=== PATIENT | male | born 1965 | race African-American/Black ===

== ENCOUNTER 2020-08-14 12:30 | Inpatient (IN) | payer MEDICAID, OTHER ==
[2020-08-14] VITALS (8 sets, daily range): BP systolic 98–126; BP diastolic 57–87
[~2020-08-14] VITALS: Ht 172.7 cm; Wt 76.7 kg
[2020-08-14] MEDS ORDERED: ALBU18HF2 IH (12:32)
[2020-08-14] MEDS ORDERED: SODIUM CHLORIDE 0.9% 1,000 ML IV ONE (13:00)
[2020-08-14 13:32] LABS: HEMATOCRIT. 23.8 % (42.0-52.0); HEMOGLOBIN. 7.9 g/dL (14.0-18.0); LYMPHOCYTES % 16.3 % (20.0-50.0); MEAN CORPUSCULAR HEMOGLOBIN 35.5 pg (28.0-32.0); MEAN CORPUSCULAR VOLUME 106.9 fL (80.0-94.0); MEAN PLATELET VOLUME 9.3 fl (7.4-10.4); MONOCYTES % 4.7 % (2.0-8.0); PLATELET 151 x1000/uL (130-400); RED BLOOD CELL COUNT 2.23 mill/uL (4.7-6.1); RED CELL DISTRIBUTION WIDTH 13.3 % (11.6-14.6)
[2020-08-14 13:38] LABS: CHLORIDE 107 mEq/L (98-107)
[2020-08-14 13:41] LABS: INR 1.1; PROTHROMBIN TIME 11.4 sec (9.6-11.0)
[2020-08-14 13:42] LABS: ETHANOL BLOOD < 10 mg/dL
[2020-08-14 13:50] LABS: CLARITY URINE CLEAR (CLEAR); COLOR URINE YELLOW (YELLOW); KETONES URINE NEGATIVE (NEGATIVE); LEUKOCYTE ESTERASE URINE NEGATIVE (NEGATIVE); NITRITE URINE NEGATIVE (NEGATIVE); OCCULT BLOOD URINE NEGATIVE (NEGATIVE); PH URINE 5.5 (4.5-8.0); PROTEIN URINE NEGATIVE (NEGATIVE); SPECIFIC GRAVITY URINE 1.019 (1.005-1.030); UROBILINOGEN URINE 0.2 E.U./dL (0.2-1.0)
[2020-08-14] MEDS ORDERED: PANTOPRAZOLE SODIUM 40 MG/VIAL IV ONE (14:15)
[2020-08-14] MEDS ORDERED: CLONIDINE 0.1MG TABLET PO PRN (16:30)
[2020-08-14] MEDS ORDERED: DIPHENHYDRAMINE 50MG/ML VIAL IV PRN (16:30)
[2020-08-14] MEDS ORDERED: ACETAMINOPHEN 325MG TABLET PO PRN (16:30)
[2020-08-14] MEDS ORDERED: ONDANSETRON HCL 4MG/2ML INJ IV PRN (16:30)
[2020-08-14] MEDS ORDERED: ATOR20TA PO (16:44)
[2020-08-14] MEDS ORDERED: LORAZEPAM 2MG/ML CPJ IV PRN (16:45)
[2020-08-14] MEDS ORDERED: *PATIENT'S OWN MEDICATION STORAGE XX SCH (17:15)
[2020-08-14] MEDS: SODIUM CHLORIDE 0.9% 1,000 ML IV SCH (18:11)
[2020-08-14 19:03] LABS: OPIATES URINE SCREEN NEGATIVE (NEGATIVE)
[2020-08-14 19:04] LABS: *AMPHETAMINES SCREEN URINE NEGATIVE (NEGATIVE); *BARBITURATES SCREEN URINE NEGATIVE (NEGATIVE); *BENZODIAZEPINES SCREEN URINE NEGATIVE (NEGATIVE); *COCAINE SCREEN URINE NEGATIVE (NEGATIVE); CANNABINOID URINE SCREEN NEGATIVE (NEGATIVE); METHADONE URINE SCREEN NEGATIVE (NEGATIVE); PHENCYCLIDINE URINE SCREEN PRESUMTIVE POSITIVE (NEGATIVE)
[2020-08-14 21:29] LABS: HEMOGLOBIN 5.9 g/dL (14.0-18.0)
[2020-08-14 21:30] LABS: HEMATOCRIT 17.6 % (42.0-52.0)
[2020-08-14] MEDS: CHLORDIAZEPOXIDE 25MG CAPSULE PO SCH (22:03)
[2020-08-14] MEDS: IPRATROPIUM BROMIDE (0.02%) 0.5MG/2.5ML NEB HHN SCH (22:54)
[2020-08-15] VITALS (22 sets, daily range): BP systolic 95–116; BP diastolic 54–86
[2020-08-15] MEDS: IPRATROPIUM BROMIDE (0.02%) 0.5MG/2.5ML NEB HHN SCH ×4 (02:51→20:29)
[2020-08-15] MEDS: SODIUM CHLORIDE 0.9% 1,000 ML IV SCH ×2 (05:50→19:53)
[2020-08-15 06:12] LABS: BASOPHILS % 0.8 % (0.0-2.0); EOSINOPHILS % 1.4 % (0.0-5.0); LYMPHOCYTES % 27.6 % (20.0-50.0); MEAN CORPUSCULAR HEMOGLOBIN 33.6 pg (28.0-32.0); MEAN CORPUSCULAR VOLUME 100.1 fL (80.0-94.0); MEAN PLATELET VOLUME 8.5 fl (7.4-10.4); MONOCYTES % 8.4 % (2.0-8.0); NEUTROPHILS % 61.8 % (40.0-76.0); PLATELET 108 x1000/uL (130-400); RED CELL DISTRIBUTION WIDTH 15.5 % (11.6-14.6)
[2020-08-15 06:22] LABS: HEMOGLOBIN. 6.7 g/dL (14.0-18.0)
[2020-08-15] MEDS: CHLORDIAZEPOXIDE 25MG CAPSULE PO SCH ×3 (06:29→21:33)
[2020-08-15 06:35] LABS: CHLORIDE 113 mEq/L (98-107)
[2020-08-15 06:43] LABS: LDL CHOLESTEROL 155 mg/dL (5-100)
[2020-08-15 06:45] LABS: HDL CHOLESTEROL 19 mg/dL (40-59)
[2020-08-15] MEDS ORDERED: PANTOPRAZOLE SODIUM 40 MG/VIAL IV SCH (09:00)
[2020-08-15] MEDS ORDERED: POTASSIUM CHLORIDE INJ 40 MEQ in DEXT 5% WATER 250 ML IV ONE (10:15)
[2020-08-15 13:33] LABS: HEMATOCRIT 23.5 % (42.0-52.0); HEMOGLOBIN 8.1 g/dL (14.0-18.0)
[2020-08-15] MEDS ORDERED: OCTREOTIDE ACETATE 50 MCG/ML 1ML IV NR (15:00)
[2020-08-15] MEDS: OCTREOTIDE 1,000 MCG in SODIUM CHLORIDE 0.9% 98 ML IV SCH (16:27)
[2020-08-15] MEDS: PANTOPRAZOLE SODIUM 40 MG/VIAL IV SCH (21:33)
[2020-08-16] VITALS (13 sets, daily range): BP systolic 82–118; BP diastolic 50–72
[2020-08-16] MEDS: IPRATROPIUM BROMIDE (0.02%) 0.5MG/2.5ML NEB HHN SCH ×5 (02:14→20:05)
[2020-08-16] MEDS: CHLORDIAZEPOXIDE 25MG CAPSULE PO SCH ×3 (06:00→21:50)
[2020-08-16 06:16] LABS: PROTHROMBIN TIME 10.9 sec (9.6-11.0)
[2020-08-16 06:25] LABS: BASOPHILS % 0.9 % (0.0-2.0); EOSINOPHILS % 2.7 % (0.0-5.0); HEMATOCRIT. 25.4 % (42.0-52.0); HEMOGLOBIN. 8.4 g/dL (14.0-18.0); LYMPHOCYTES % 24.9 % (20.0-50.0); MEAN CORPUSCULAR HEMOGLOBIN 33.3 pg (28.0-32.0); MEAN CORPUSCULAR VOLUME 100.7 fL (80.0-94.0); MEAN PLATELET VOLUME 7.8 fl (7.4-10.4); MONOCYTES % 6.1 % (2.0-8.0); NEUTROPHILS % 65.4 % (40.0-76.0); PLATELET 133 x1000/uL (130-400); RED BLOOD CELL COUNT 2.52 mill/uL (4.7-6.1); RED CELL DISTRIBUTION WIDTH 17.3 % (11.6-14.6)
[2020-08-16 06:53] LABS: FERRITIN 887 ng/mL (22-322)
[2020-08-16 07:03] LABS: CHLORIDE 112 mEq/L (98-107)
[2020-08-16 07:05] LABS: HEPATITIS B SURFACE ANTIGEN NEGATIVE
[2020-08-16 07:14] LABS: PHOSPHORUS 3.1 mg/dL (2.5-4.9)
[2020-08-16 07:15] LABS: TOTAL IRON BINDING CAPACITY 263 ug/dL (250-450)
[2020-08-16 07:34] LABS: HEPATITIS A AB IGM NEGATIVE (NEGATIVE)
[2020-08-16 08:16] LABS: FOLIC ACID (FOLATE) SERUM >20 ng/mL ng/mL (>5.38)
[2020-08-16 08:27] LABS: VITAMIN B12 SERUM 1067 pg/mL (211-911)
[2020-08-16] MEDS: SODIUM CHLORIDE 0.9% 1,000 ML IV SCH ×2 (08:47→21:31)
[2020-08-16] MEDS: PANTOPRAZOLE SODIUM 40 MG/VIAL IV SCH ×2 (08:47→21:23)
[2020-08-16] MEDS: OCTREOTIDE 1,000 MCG in SODIUM CHLORIDE 0.9% 98 ML IV SCH (12:59)
[2020-08-17] VITALS (21 sets, daily range): BP systolic 91–126; BP diastolic 47–107
[2020-08-17] MEDS: IPRATROPIUM BROMIDE (0.02%) 0.5MG/2.5ML NEB HHN SCH ×4 (02:00→20:44)
[2020-08-17] MEDS: CHLORDIAZEPOXIDE 25MG CAPSULE PO SCH ×3 (06:01→21:31)
[2020-08-17 06:17] LABS: BASOPHILS % 0.6 % (0.0-2.0); EOSINOPHILS % 1.7 % (0.0-5.0); HEMATOCRIT. 21.9 % (42.0-52.0); HEMOGLOBIN. 7.5 g/dL (14.0-18.0); LYMPHOCYTES % 34.9 % (20.0-50.0); MEAN CORPUSCULAR HEMOGLOBIN 33.9 pg (28.0-32.0); MEAN CORPUSCULAR VOLUME 99.1 fL (80.0-94.0); MEAN PLATELET VOLUME 7.4 fl (7.4-10.4); MONOCYTES % 8.9 % (2.0-8.0); NEUTROPHILS % 53.9 % (40.0-76.0); PLATELET 144 x1000/uL (130-400); RED BLOOD CELL COUNT 2.21 mill/uL (4.7-6.1); RED CELL DISTRIBUTION WIDTH 15.9 % (11.6-14.6)
[2020-08-17 06:19] LABS: INR 1.1; PROTHROMBIN TIME 11.3 sec (9.6-11.0)
[2020-08-17 06:29] LABS: CHLORIDE 112 mEq/L (98-107)
[2020-08-17] MEDS: OCTREOTIDE 1,000 MCG in SODIUM CHLORIDE 0.9% 98 ML IV SCH (08:42)
[2020-08-17] MEDS: PANTOPRAZOLE SODIUM 40 MG/VIAL IV SCH ×2 (08:43→21:31)
[2020-08-17] MEDS: SODIUM CHLORIDE 0.9% 1,000 ML IV SCH (11:08)
[2020-08-17] MEDS ORDERED: PROPOFOL 200MG/20ML VIAL IV ONE (12:20)
[2020-08-17] MEDS ORDERED: LIDOCAINE HCL/PF 1% 10 MG/ML 5ML VIAL ONE (12:20)
[2020-08-17 19:43] LABS: HEMATOCRIT 27.4 % (42.0-52.0); HEMOGLOBIN 9.4 g/dL (14.0-18.0)
[2020-08-18] VITALS (10 sets, daily range): BP systolic 92–124; BP diastolic 36–82
[2020-08-18] MEDS: SODIUM CHLORIDE 0.9% 1,000 ML IV SCH (01:53)
[2020-08-18] MEDS: IPRATROPIUM BROMIDE (0.02%) 0.5MG/2.5ML NEB HHN SCH ×3 (02:21→14:00)
[2020-08-18] MEDS: OCTREOTIDE 1,000 MCG in SODIUM CHLORIDE 0.9% 98 ML IV SCH (04:35)
[2020-08-18] MEDS: CHLORDIAZEPOXIDE 25MG CAPSULE PO SCH (06:01)
[2020-08-18 06:16] LABS: CHLORIDE 112 mEq/L (98-107)
[2020-08-18 06:25] LABS: BASOPHILS % 0.5 % (0.0-2.0); EOSINOPHILS % 1.6 % (0.0-5.0); HEMATOCRIT. 26.3 % (42.0-52.0); LYMPHOCYTES % 31.3 % (20.0-50.0); MEAN CORPUSCULAR HEMOGLOBIN 33.2 pg (28.0-32.0); MEAN CORPUSCULAR VOLUME 97.2 fL (80.0-94.0); MEAN PLATELET VOLUME 7.4 fl (7.4-10.4); MONOCYTES % 12.4 % (2.0-8.0); NEUTROPHILS % 54.2 % (40.0-76.0); PLATELET 157 x1000/uL (130-400); RED CELL DISTRIBUTION WIDTH 17.2 % (11.6-14.6)
[2020-08-18] MEDS: PANTOPRAZOLE SODIUM 40 MG/VIAL IV SCH (08:30)
[2020-08-18] MEDS ORDERED: PANT40TA51 MT (12:41)
== END 2020-08-18 16:03 | disposition home or self-care (01) | DRG 241 ==
LOC: EDBD 12:30 → ER 12:30 → 3WST 14:55 → ENRESERV 15:28
PROVIDERS: ADMIT Internal Medicine; ATTEND Internal Medicine
PROC: 30233N1 Transfusion of Nonautologous Red Blood Cells into Peripheral Vein, Percutaneous Approach (ICD-10-PCS; principal; 2020-08-17)
PROC: 0DB78ZX Excision of Stomach, Pylorus, Via Natural or Artificial Opening Endoscopic, Diagnostic (ICD-10-PCS; 2020-08-17)
DX: K29.81 Duodenitis with bleeding (principal); E43 Unspecified severe protein-calorie malnutrition; D69.6 Thrombocytopenia, unspecified; I82.412 Acute embolism and thrombosis of left femoral vein; E88.09 Other disorders of plasma-protein metabolism, not elsewhere classified; K29.61 Other gastritis with bleeding; D53.9 Nutritional anemia, unspecified; E78.5 Hyperlipidemia, unspecified; E87.6 Hypokalemia; R74.01 Elevation of levels of liver transaminase levels; J45.909 Unspecified asthma, uncomplicated; Z20.822 Contact with and (suspected) exposure to COVID-19; E80.6 Other disorders of bilirubin metabolism; F10.10 Alcohol abuse, uncomplicated; F16.10 Hallucinogen abuse, uncomplicated; Z72.0 Tobacco use; Z71.51 Drug abuse counseling and surveillance of drug abuser; Z68.25 Body mass index [BMI] 25.0-25.9, adult
CPT/HCPCS: 36415; 71045; 76700; 80048; 80053; 80061; 80076; 80305; 80320; 81003; 82140; 82248; 82607; 82728; 82746; 83540; 83550; 83735; 84100; 84443; 85014; 85018; 85025; 85044; 85049; 85384; 86705; 86709; 86803; 86850; 86900; 86920; 87340; 87426; 88305; 88312; 88313; 93005; 93970; 94640; 99291; C9113; J2060; J2354; J2704; J3480; J3490; J7030; J7040; J7050; J7060; P9016; G0480